=== PATIENT | male | born 1940 ===

== ENCOUNTER 2017-11-20 10:23 | Outpatient (CLI) | payer OTHER ==
[~2017-11-20] VITALS: Ht 167.6 cm; Wt 70.3 kg
== END 2017-11-20 10:45 | disposition home or self-care (01) ==
LOC: OFIC 805 10:23
DX: H61.21 Impacted cerumen, right ear (principal); H60.8X1 Other otitis externa, right ear

== ENCOUNTER 2017-11-27 08:33 | Outpatient (CLI) | payer OTHER ==
[~2017-11-27] VITALS: Ht 152.4 cm; Wt 70.3 kg
== END 2017-11-27 08:50 | disposition home or self-care (01) ==
LOC: OFIC 805 08:33
DX: H60.8X2 Other otitis externa, left ear (principal)

== ENCOUNTER 2017-12-01 07:56 | Outpatient (CLI) | payer OTHER ==
[~2017-12-01] VITALS: Ht 152.4 cm; Wt 70.3 kg
== END 2017-12-01 08:15 | disposition home or self-care (01) ==
LOC: OFIC 805 07:56
DX: H90.71 Mixed conductive and sensorineural hearing loss, unilateral, right ear, with unrestricted hearing on the contralateral side (principal); H60.8X1 Other otitis externa, right ear; H69.83 Other specified disorders of Eustachian tube, bilateral; H61.23 Impacted cerumen, bilateral

== ENCOUNTER 2017-12-22 07:59 | Outpatient (CLI) | payer OTHER ==
[~2017-12-22] VITALS: Ht 152.4 cm; Wt 70.3 kg
== END 2017-12-22 08:15 | disposition home or self-care (01) ==
LOC: OFIC 805 07:59
DX: H60.8X1 Other otitis externa, right ear (principal); H61.23 Impacted cerumen, bilateral; H90.3 Sensorineural hearing loss, bilateral

== ENCOUNTER 2018-01-19 07:40 | Outpatient (CLI) | payer OTHER ==
[~2018-01-19] VITALS: Ht 152.4 cm; Wt 70.3 kg
== END 2018-01-19 08:02 | disposition home or self-care (01) ==
LOC: OFIC 805 07:40
DX: H61.23 Impacted cerumen, bilateral (principal); H90.3 Sensorineural hearing loss, bilateral; H72.91 Unspecified perforation of tympanic membrane, right ear

== ENCOUNTER 2018-02-23 08:02 | Outpatient (CLI) | payer OTHER ==
[~2018-02-23] VITALS: Ht 152.4 cm; Wt 70.3 kg
== END 2018-02-23 08:20 | disposition home or self-care (01) ==
LOC: OFIC 805 08:02
DX: H90.71 Mixed conductive and sensorineural hearing loss, unilateral, right ear, with unrestricted hearing on the contralateral side (principal); H72.2X1 Other marginal perforations of tympanic membrane, right ear; H60.8X1 Other otitis externa, right ear; H70.11 Chronic mastoiditis, right ear

== ENCOUNTER 2018-04-13 08:32 | Outpatient (CLI) | payer OTHER ==
[~2018-04-13] VITALS: Ht 152.4 cm; Wt 70.3 kg
== END 2018-04-13 08:45 | disposition home or self-care (01) ==
LOC: OFIC 805 08:32
DX: H72.2X1 Other marginal perforations of tympanic membrane, right ear (principal); H90.71 Mixed conductive and sensorineural hearing loss, unilateral, right ear, with unrestricted hearing on the contralateral side; H70.11 Chronic mastoiditis, right ear; H60.8X1 Other otitis externa, right ear; H61.23 Impacted cerumen, bilateral

== ENCOUNTER 2018-06-22 07:04 | Outpatient (CLI) | payer OTHER ==
[~2018-06-22] VITALS: Ht 152.4 cm; Wt 70.3 kg
== END 2018-06-22 07:20 | disposition home or self-care (01) ==
LOC: OFIC 805 07:04
DX: H72.821 Total perforations of tympanic membrane, right ear (principal); H90.71 Mixed conductive and sensorineural hearing loss, unilateral, right ear, with unrestricted hearing on the contralateral side; H61.23 Impacted cerumen, bilateral

== ENCOUNTER 2018-09-21 07:51 | Outpatient (CLI) | payer OTHER ==
[~2018-09-21] VITALS: Ht 152.4 cm; Wt 70.3 kg
== END 2018-09-21 11:03 | disposition home or self-care (01) ==
LOC: OFIC 805 07:51
DX: H90.71 Mixed conductive and sensorineural hearing loss, unilateral, right ear, with unrestricted hearing on the contralateral side (principal); H72.2X1 Other marginal perforations of tympanic membrane, right ear; H70.11 Chronic mastoiditis, right ear

== ENCOUNTER 2018-11-16 07:35 | Outpatient (CLI) | payer OTHER | END 2018-11-16 07:50 | disposition home or self-care (01) | LOC: OFIC 805 07:35 | DX: H72.2X1 Other marginal perforations of tympanic membrane, right ear (principal); H90.71 Mixed conductive and sensorineural hearing loss, unilateral, right ear, with unrestricted hearing on the contralateral side; H61.23 Impacted cerumen, bilateral; H90.3 Sensorineural hearing loss, bilateral; J31.0 Chronic rhinitis ==

== ENCOUNTER 2019-03-15 07:45 | Outpatient (CLI) | payer OTHER ==
[~2019-03-15] VITALS: Ht 152.4 cm; Wt 68.0 kg
== END 2019-03-15 08:00 | disposition home or self-care (01) ==
LOC: OFIC 805 07:45
DX: H70.11 Chronic mastoiditis, right ear (principal); J31.0 Chronic rhinitis; H90.71 Mixed conductive and sensorineural hearing loss, unilateral, right ear, with unrestricted hearing on the contralateral side; H72.91 Unspecified perforation of tympanic membrane, right ear; H60.8X3 Other otitis externa, bilateral

== ENCOUNTER → 2019-08-23 | Outpatient (CLI) | payer OTHER ==
[~2019-08-23] VITALS: Ht 152.4 cm; Wt 70.3 kg
== END | disposition home or self-care (01) ==
LOC: OFIC 805 06:52
DX: H90.71 Mixed conductive and sensorineural hearing loss, unilateral, right ear, with unrestricted hearing on the contralateral side (principal); H61.23 Impacted cerumen, bilateral; H70.11 Chronic mastoiditis, right ear; J31.0 Chronic rhinitis; H90.3 Sensorineural hearing loss, bilateral

== ENCOUNTER 2019-12-31 11:42 | Outpatient (CLI) | payer OTHER ==
[~2019-12-31] VITALS: Ht 152.4 cm; Wt 68.0 kg
== END 2019-12-31 14:01 | disposition home or self-care (01) ==
LOC: OFIC 805 11:42
DX: H70.11 Chronic mastoiditis, right ear (principal); H90.3 Sensorineural hearing loss, bilateral; H72.91 Unspecified perforation of tympanic membrane, right ear

== ENCOUNTER 2020-04-28 08:55 | Outpatient (CLI) | payer OTHER | END 2020-04-28 09:43 | disposition home or self-care (01) | LOC: OFIC 805 08:55 | PROVIDERS: ATTEND Otolaryngology | DX: H90.71 Mixed conductive and sensorineural hearing loss, unilateral, right ear, with unrestricted hearing on the contralateral side (principal); H72.91 Unspecified perforation of tympanic membrane, right ear ==

== ENCOUNTER → 2020-09-01 | Outpatient (CLI) | payer OTHER | END | disposition home or self-care (01) | LOC: OFIC 805 10:00 | PROVIDERS: ATTEND Otolaryngology | DX: H72.91 Unspecified perforation of tympanic membrane, right ear (principal) ==